=== PATIENT | male | born 1945 | race Two or more races ===

== ENCOUNTER → 2019-02-15 | Outpatient (CLI) | payer OTHER | END | disposition home or self-care (01) | LOC: RAD 08:54 | DX: I10 Essential (primary) hypertension (principal) ==

== ENCOUNTER 2019-03-04 10:04 | Outpatient (CLI) | payer OTHER | END 2019-03-04 11:00 | disposition home or self-care (01) | LOC: NUCLEAR 10:04 | DX: I20.1 Angina pectoris with documented spasm (principal) ==

== ENCOUNTER 2019-03-29 08:44 | Outpatient (CLI) | payer OTHER | END 2019-03-29 08:47 | disposition home or self-care (01) | LOC: RAD 08:44 | DX: M47.895 Other spondylosis, thoracolumbar region (principal) ==

== ENCOUNTER 2021-06-13 15:12 | Outpatient (CLI) | payer OTHER ==
[2021-06-20] MEDS ORDERED: METFORMIN HCL500 M3 PO (15:40)
[2021-06-20] MEDS ORDERED: COZAAR25 MG PO (15:40)
== END 2021-06-13 15:27 | disposition home or self-care (01) ==
LOC: RAD 15:12
PROVIDERS: ATTEND Orthopaedic Surgery
DX: M79.642 Pain in left hand (principal)

== ENCOUNTER → 2021-06-15 08:33 | Outpatient (CLI) | payer OTHER ==
[~2021-06-15 08:33] MED LIST: COZAAR25 MG PO; METFORMIN HCL500 M3 PO
== END | disposition home or self-care (01) ==
LOC: LAB 08:33
PROVIDERS: ATTEND Orthopaedic Surgery
DX: D64.9 Anemia, unspecified (principal); E88.9 Metabolic disorder, unspecified; D68.8 Other specified coagulation defects; N39.0 Urinary tract infection, site not specified; E11.65 Type 2 diabetes mellitus with hyperglycemia; A49.02 Methicillin resistant Staphylococcus aureus infection, unspecified site

== ENCOUNTER 2021-06-22 08:31 | Outpatient (CLI) | payer OTHER | END 2021-06-22 13:19 | disposition home or self-care (01) | LOC: LAB 08:31 | PROVIDERS: ATTEND Orthopaedic Surgery | DX: D68.9 Coagulation defect, unspecified (principal) ==

== ENCOUNTER 2021-06-25 07:14 | Day surgery (SDC) | payer OTHER | END 2021-06-25 15:38 | disposition home or self-care (01) | LOC: CIR.AMB 07:14 | PROVIDERS: ATTEND Orthopaedic Surgery | DX: M65.342 Trigger finger, left ring finger (principal); Z88.8 Allergy status to other drugs, medicaments and biological substances; I10 Essential (primary) hypertension; J45.909 Unspecified asthma, uncomplicated; G43.909 Migraine, unspecified, not intractable, without status migrainosus; M19.90 Unspecified osteoarthritis, unspecified site; E11.9 Type 2 diabetes mellitus without complications; Z79.84 Long term (current) use of oral hypoglycemic drugs ==

== ENCOUNTER 2021-08-20 08:08 | Outpatient (CLI) | payer OTHER | END 2021-08-20 13:47 | disposition home or self-care (01) | LOC: LAB 08:08 | PROVIDERS: ATTEND Orthopaedic Surgery | DX: M81.8 Other osteoporosis without current pathological fracture (principal); E55.9 Vitamin D deficiency, unspecified; M85.9 Disorder of bone density and structure, unspecified; E56.1 Deficiency of vitamin K; E21.3 Hyperparathyroidism, unspecified; E88.9 Metabolic disorder, unspecified ==

== ENCOUNTER 2022-05-08 08:14 | Outpatient (CLI) | payer OTHER | END 2022-05-08 08:16 | disposition home or self-care (01) | LOC: LAB 08:14 | PROVIDERS: ATTEND Internal Medicine Cardiovascular Disease | DX: I10 Essential (primary) hypertension (principal); E78.5 Hyperlipidemia, unspecified; E11.9 Type 2 diabetes mellitus without complications; N40.1 Benign prostatic hyperplasia with lower urinary tract symptoms ==